=== PATIENT | male | born 1970 ===

== ENCOUNTER 2017-12-05 23:32 | Inpatient (IN) | payer MEDICAID, OTHER ==
[~2017-12-05] VITALS: Ht 177.8 cm; Wt 74.8 kg
[2017-12-06] MEDS ORDERED: HALOPERIDOL LACTATE 5 MG/ML VIAL IM ONE (00:45)
[2017-12-06] MEDS ORDERED: LORazepam 2 MG/ML VIAL IM ONE (00:45)
[2017-12-06] MEDS ORDERED: DiphenhydrAMINE HCL 50 MG/ML VIAL IM ONE (00:45)
[2017-12-06 02:00] LABS: BASOPHILS % (AUTO) 2.3 % (0.0-2.0); EOSINOPHILS % (AUTO) 4.7 % (1.0-6.0); HEMATOCRIT 41.2 % (41-53); HEMOGLOBIN 14.7 g/dL (13.5-17.5); LYMPHOCYTES # (AUTO) 2.6 K/uL (1.0-4.8); LYMPHOCYTES % (AUTO) 32.1 % (22.0-44.0); MEAN CORPUSCULAR HEMOGLOBIN 30.7 pg (26.0-34.0); MEAN CORPUSCULAR HGB CONC 35.7 G/dL (31.0-37.0); MEAN CORPUSCULAR VOLUME 86 fL (80-100); MONOCYTES # (AUTO) 0.5 K/uL (0.1-1.0); MONOCYTES % (AUTO) 6.6 % (2.0-9.0); NEUTROPHILS # (AUTO) 4.5 K/uL (1.8-7.7); NEUTROPHILS % (AUTO) 54.3 % (40.0-70.0); PLATELET COUNT (AUTO) 277 K/uL (150-450); RED BLOOD CELL COUNT(AUTO) 4.79 MIL/uL (4.50-5.90); RED CELL DISTRIBUTION WIDTH 13.9 % (11.5-14.5)
[2017-12-06 02:14] LABS: ANION GAP 8 mmol/L (8-16); CALCIUM, TOTAL 7.9 mg/dL (8.8-10.5); CARBON DIOXIDE 31 mmol/L (22-29); CHLORIDE 109 mmol/L (98-107); CREATININE 1.17 mg/dL (0.60-1.30); GLOMERULAR FILTR. RATE CALC > 60 mL/min (>60); GLUCOSE,RANDOM 99 mg/dL (70-110); POTASSIUM 3.9 mmol/L (3.5-5.1); SODIUM SERUM 148 mmol/L (136-145); UREA NITROGEN, BLOOD 10 mg/dL (7-18)
[2017-12-06 02:20] LABS: ALANINE AMINOTRANSFERASE 33 U/L (12-78); ALBUMIN 3.2 g/dL (3.4-5.0); ALKALINE PHOSPHATASE 89 U/L (46-116); ASPARTATE AMINOTRANSFERASE 29 U/L (15-37); BILIRUBIN,TOTAL 0.2 mg/dL (0.1-1.0); TOTAL PROTEIN, SERUM 6.1 g/dL (6.4-8.2)
[2017-12-06 20:15] VITALS: BP 123/83
[2017-12-06 20:27] VITALS: BP 123/83
[2017-12-06] MEDS: ZOLPIDEM TARTRATE 10 MG TABLET PO PRN (20:56)
[2017-12-06 21:15] VITALS: BP 100/62
[2017-12-06 22:15] VITALS: BP 111/77
[2017-12-06 23:15] VITALS: BP 108/77
[2017-12-07 03:16] VITALS: BP 118/72
[2017-12-07 07:05] VITALS: BP 120/70
[2017-12-07 07:07] VITALS: BP 120/70
[2017-12-07 07:19] VITALS: BP 120/70
[2017-12-07 08:03] VITALS: BP 132/78
[2017-12-07] MEDS: RisperiDONE 1 MG TABLET PO SCH ×2 (11:35→20:43)
[2017-12-07] MEDS ORDERED: ACETAMINOPHEN 325 MG TABLET PO PRN (11:45)
[2017-12-07] MEDS ORDERED: IBUPROFEN 400 MG TABLET PO PRN (11:45)
[2017-12-07 16:00] VITALS: BP 117/69
[2017-12-07] MEDS: LORazepam 2 MG TABLET PO PRN (16:31)
[2017-12-07] MEDS: HALOPERIDOL 5 MG TABLET PO PRN (16:31)
[2017-12-08 06:20] VITALS: BP 110/64
[2017-12-08] MEDS: RisperiDONE 1 MG TABLET PO SCH ×2 (08:11→20:45)
[2017-12-08 08:13] VITALS: BP 116/63
[2017-12-08 08:39] LABS: HEMOGLOBIN A1C 5.1 % (4.5-6.2)
[2017-12-08 09:19] LABS: CHOL/HDL RATIO 3.2 (4.2-7.3); THYROID STIMULATING HORMONE 1.1 uIU/mL (0.36-3.74)
[2017-12-08] MEDS: LORazepam 2 MG TABLET PO PRN ×2 (13:18→20:45)
[2017-12-08] MEDS: HALOPERIDOL 5 MG TABLET PO PRN (13:18)
[2017-12-08 16:00] VITALS: BP 111/82
[2017-12-08] MEDS: ZOLPIDEM TARTRATE 10 MG TABLET PO PRN (20:45)
[2017-12-09 06:20] VITALS: BP 108/64
[2017-12-09] MEDS: RisperiDONE 1 MG TABLET PO SCH ×2 (08:14→20:44)
[2017-12-09 09:05] VITALS: BP 103/62
[2017-12-09] MEDS: LORazepam 2 MG TABLET PO PRN (13:33)
[2017-12-09 16:35] VITALS: BP 103/71
[2017-12-09] MEDS: ZOLPIDEM TARTRATE 10 MG TABLET PO PRN (20:44)
[2017-12-10 05:27] VITALS: BP 113/78
[2017-12-10 08:05] LABS: ANION GAP 8 mmol/L (8-16); CALCIUM, TOTAL 8.1 mg/dL (8.8-10.5); CARBON DIOXIDE 27 mmol/L (22-29); CHLORIDE 103 mmol/L (98-107); CREATININE 0.78 mg/dL (0.60-1.30); GLOMERULAR FILTR. RATE CALC > 60 mL/min (>60); GLUCOSE,RANDOM 83 mg/dL (70-110); POTASSIUM 3.7 mmol/L (3.5-5.1); SODIUM SERUM 138 mmol/L (136-145); UREA NITROGEN, BLOOD 18 mg/dL (7-18)
[2017-12-10 08:22] VITALS: BP 106/64
[2017-12-10] MEDS: RisperiDONE 1 MG TABLET PO SCH ×2 (08:38→20:14)
[2017-12-10 16:05] VITALS: BP 103/62
[2017-12-10] MEDS: LORazepam 2 MG TABLET PO PRN (16:43)
[2017-12-10] MEDS: ZOLPIDEM TARTRATE 10 MG TABLET PO PRN (20:14)
[2017-12-11 06:44] VITALS: BP 106/67
[2017-12-11 08:12] VITALS: BP 104/60
[2017-12-11] MEDS: RisperiDONE 2 MG TABLET PO SCH ×2 (08:49→20:39)
[2017-12-11] MEDS: LORazepam 2 MG TABLET PO PRN ×3 (12:33→20:39)
[2017-12-11 16:00] VITALS: BP 112/69
[2017-12-11] MEDS: ZOLPIDEM TARTRATE 10 MG TABLET PO PRN (20:39)
[2017-12-12 06:27] VITALS: BP 106/63
[2017-12-12 08:09] VITALS: BP 104/67
[2017-12-12] MEDS: RisperiDONE 2 MG TABLET PO SCH (08:49)
[2017-12-12] MEDS: LORazepam 2 MG TABLET PO PRN (08:49)
[2017-12-12] MEDS ORDERED: RISP2TAB76 PO (16:03)
== END 2017-12-12 16:40 | disposition home or self-care (01) | DRG 750 ==
LOC: EMS 23:33 → B3A 12-06 19:40
DX: F20.0 Paranoid schizophrenia (principal); E87.0 Hyperosmolality and hypernatremia; Z59.0 Homelessness; F10.129 Alcohol abuse with intoxication, unspecified; E83.51 Hypocalcemia; E88.09 Other disorders of plasma-protein metabolism, not elsewhere classified; Y90.6 Blood alcohol level of 120-199 mg/100 ml; F17.210 Nicotine dependence, cigarettes, uncomplicated; Z79.899 Other long term (current) drug therapy; Z79.1 Long term (current) use of non-steroidal anti-inflammatories (NSAID)
CPT/HCPCS: 83036; 84443; 96372; 99285; G0480; J1200; J1630; J2060